=== PATIENT | female | born 1990 | race Caucasian/White ===

== ENCOUNTER 2017-11-18 04:53 | Inpatient (IN) | payer MEDICAID ==
[2017-11-18] MEDS ORDERED: MISOPROSTOL 200 MCG TAB PR ×2 (05:30→09:00)
[2017-11-18] MEDS ORDERED: LIDOCAINE 1% (MPF) 30 ML INJ INJ (05:30)
[2017-11-18] MEDS ORDERED: OXYTOCIN 30 UNITS/LR 500 ML IV ×2 (05:30→09:00)
[2017-11-18] MEDS ORDERED: BUTORPHANOL 2 MG INJ IV (05:30)
[2017-11-18] MEDS ORDERED: CARBOPROST 250 MCG INJ IM ×2 (05:30→09:00)
[2017-11-18] MEDS ORDERED: IBUPROFEN 600 MG TAB PO (05:30)
[2017-11-18] MEDS: AMPICILLIN 2 GM/NS (PMX) 100 ML IV (05:32)
[2017-11-18] MEDS: LACTATED RINGER'S 1,000 ML IV (05:32)
[2017-11-18 06:08] LABS: ADD MAN DIFF? NO
[2017-11-18 06:15] LABS: WHITE BLOOD COUNT 9.9 10^3/ul (4.8-10.8)
[2017-11-18 06:15] LABS: BASOPHILS % 0.2 % (0.0-2.0); EOSINOPHILS % 0.2 % (0.0-7.0); HEMATOCRIT 37.6 % (37.0-47.0); HEMOGLOBIN 12.9 g/dl (12.0-16.0); LYMPHOCYTES % 10.1 % (15.0-51.0); MEAN CORPUSCULAR HEMOGLOBIN 30.1 pg (29.0-33.0); MEAN CORPUSCULAR HGB CONC 34.3 g/dl (32.0-37.0); MEAN CORPUSCULAR VOLUME 87.6 fl (82.0-101.0); MONOCYTE # 0.6 10^3/ul (0.3-0.9); MONOCYTES % 5.5 % (0.0-11.0); NEUTROPHIL # 8.3 10^3/ul (1.6-7.5); NEUTROPHILS % 83.4 % (39.0-77.0); PLATELET COUNT 151 10^3/UL (140-415); RED BLOOD COUNT 4.29 10^6/ul (4.20-5.40); RED CELL DISTRIBUTION WIDTH 13.4 % (11.5-14.5)
[2017-11-18] MEDS: METHYLERGONOVINE 0.2 MG INJ IM (06:26)
[2017-11-18] MEDS: OXYTOCIN 30 UNITS/LR 500 ML IV ×2 (06:26→06:46)
[2017-11-18 06:33] LABS: INR 0.92; PROTIME 12.4 Sec (11.9-14.9)
[2017-11-18 06:34] LABS: PARTIAL THROMBOPLASTIN TIME 27.3 Sec (25.0-35.0)
[2017-11-18] MEDS ORDERED: ZOLPIDEM 5 MG TAB PO (09:00)
[2017-11-18] MEDS ORDERED: OXYCODONE/ASPIRIN (4.88/325) TAB PO ×2 (09:00)
[2017-11-18] MEDS ORDERED: METHYLERGONOVINE 0.2 MG INJ IM (09:00)
[2017-11-18] MEDS: SENNA/DOCUSATE NA (8.6MG/50MG) TAB PO ×2 (09:13→21:01)
[2017-11-18] MEDS ORDERED: AMPICILLIN 1 GM/NS (PMX) 50 ML IV (09:30)
[2017-11-18] MEDS: LANOLIN 7 GM TUBE TOP (11:34)
[2017-11-18] MEDS: IBUPROFEN 600 MG TAB PO ×3 (11:34→23:13)
[2017-11-18] MEDS: WITCH HAZEL/GLYCERIN PAD PR (11:34)
[2017-11-18] MEDS: BENZOCAINE 20% 56 ML SPRAY TOP (11:34)
[2017-11-18 18:59] LABS: RAPID PLASMA REAGIN NONREACTIVE (NR)
[2017-11-19] MEDS: IBUPROFEN 600 MG TAB PO ×4 (06:01→23:35)
[2017-11-19 08:27] LABS: ADD MAN DIFF? NO
[2017-11-19 08:37] LABS: WHITE BLOOD COUNT 9.6 10^3/ul (4.8-10.8)
[2017-11-19 08:37] LABS: BASOPHILS % 0.2 % (0.0-2.0); EOSINOPHILS % 0.4 % (0.0-7.0); HEMATOCRIT 31.8 % (37.0-47.0); HEMOGLOBIN 10.8 g/dl (12.0-16.0); LYMPHOCYTES # 1.2 10^3/ul (0.8-2.9); LYMPHOCYTES % 12.9 % (15.0-51.0); MEAN CORPUSCULAR HEMOGLOBIN 30.5 pg (29.0-33.0); MEAN CORPUSCULAR VOLUME 89.8 fl (82.0-101.0); MEAN PLATELET VOLUME 11.7 fl (7.4-10.4); MONOCYTE # 0.8 10^3/ul (0.3-0.9); MONOCYTES % 8.5 % (0.0-11.0); NEUTROPHIL # 7.4 10^3/ul (1.6-7.5); NEUTROPHILS % 77.4 % (39.0-77.0); PLATELET COUNT 127 10^3/UL (140-415); RED BLOOD COUNT 3.54 10^6/ul (4.20-5.40); RED CELL DISTRIBUTION WIDTH 13.3 % (11.5-14.5)
[2017-11-19] MEDS: SENNA/DOCUSATE NA (8.6MG/50MG) TAB PO ×2 (09:37→20:29)
[2017-11-20] MEDS: IBUPROFEN 600 MG TAB PO (05:41)
[2017-11-20] MEDS ORDERED: DIPHTH/TET/ACEL PERTUSS (ADULT) 0.5 ML VIAL IM* (09:00)
[2017-11-20] MEDS: SENNA/DOCUSATE NA (8.6MG/50MG) TAB PO (09:15)
== END 2017-11-20 12:05 | disposition home or self-care (01) | DRG 775 ==
LOC: OBT 04:53 → L-D 04:53 → OBT 05:15 → L-D 05:16 → PP1 08:24
PROVIDERS: Obstetrics & Gynecology
PROC: 10E0XZZ Delivery of Products of Conception, External Approach (ICD-10-PCS; principal; 2017-11-18)
DX: O80 Encounter for full-term uncomplicated delivery (principal); Z37.0 Single live birth; Z3A.39 39 weeks gestation of pregnancy
CPT/HCPCS: 85025; 85610; 85730; 86592; 86900; 86901

== ENCOUNTER 2018-10-30 11:20 | Emergency (ER) | payer MEDICAID ==
[2018-10-30 12:55] LABS: ADD UMIC NO; UR ASCORBIC ACID NEGATIVE (NEGATIVE); UR BILIRUBIN (Dip) NEGATIVE (NEGATIVE); UR BLOOD (Dip) NEGATIVE (NEGATIVE); UR CLARITY CLEAR (CLEAR); UR COLOR YELLOW (YELLOW); UR GLUCOSE (Dip) NEGATIVE (NEGATIVE); UR KETONES (Dip) NEGATIVE (NEGATIVE); UR LEUKOCYTE ESTERASE (Dip) NEGATIVE Leu/ul (NEGATIVE); UR NITRITE (Dip) NEGATIVE (NEGATIVE); UR SPECIFIC GRAVITY (Dip) 1.031 (1.003-1.030); UR TOTAL PROTEIN (Dip) NEGATIVE (NEGATIVE); UR UROBILINOGEN (Dip) 1+ mg/dL (NEGATIVE)
[2018-10-30 13:17] LABS: ADD MAN DIFF? NO
[2018-10-30 13:22] LABS: WHITE BLOOD COUNT 7.2 10^3/ul (4.8-10.8)
[2018-10-30 13:22] LABS: BASOPHILS % 0.6 % (0.0-2.0); EOSINOPHILS # 0.1 10^3/ul (0.0-0.5); EOSINOPHILS % 1.8 % (0.0-7.0); HEMATOCRIT 40.4 % (37.0-47.0); HEMOGLOBIN 13.4 g/dl (12.0-16.0); LYMPHOCYTES # 1.6 10^3/ul (0.8-2.9); LYMPHOCYTES % 21.7 % (15.0-51.0); MEAN CORPUSCULAR HEMOGLOBIN 28.7 pg (29.0-33.0); MEAN CORPUSCULAR HGB CONC 33.2 g/dl (32.0-37.0); MEAN CORPUSCULAR VOLUME 86.5 fl (82.0-101.0); MEAN PLATELET VOLUME 9.7 fl (7.4-10.4); MONOCYTE # 0.5 10^3/ul (0.3-0.9); MONOCYTES % 7.1 % (0.0-11.0); NEUTROPHIL # 4.9 10^3/ul (1.6-7.5); NEUTROPHILS % 68.4 % (39.0-77.0); PLATELET COUNT 317 10^3/UL (140-415); RED BLOOD COUNT 4.67 10^6/ul (4.20-5.40); RED CELL DISTRIBUTION WIDTH 12.3 % (11.5-14.5)
[2018-10-30 13:39] LABS: ANION GAP 8 (5-13); BLOOD UREA NITROGEN 21 mg/dl (7-20); CALCIUM 10.1 mg/dl (8.4-10.2); CARBON DIOXIDE 28 mmol/L (21-31); CHLORIDE 103 mmol/L (97-110); CREATININE 0.47 mg/dl (0.44-1.00); Estimated GFR > 60 mL/min (>60); GLUCOSE 84 mg/dl (70-220); LIPASE 150 U/L (23-300); SODIUM 139 mmol/L (135-144)
== END 2018-10-30 13:55 | disposition home or self-care (01) ==
LOC: FTE 11:20
DX: R10.30 Lower abdominal pain, unspecified (principal)
CPT/HCPCS: 76856; 80048; 81003; 81025; 83690; 85025; 99284-25